=== PATIENT | female | born 1965 | race African-American/Black ===

== ENCOUNTER 2017-11-09 16:58 | Inpatient (IN) | payer SELFPAY ==
[~2017-11-09] VITALS: Ht 157.5 cm; Wt 92.8 kg
[~2017-11-09 16:58] MED LIST: ABILIFY10 MG PO; CONCERTA36 MG PO; CYMBALTA60 MG PO; DESYREL100 MG PO; GEODON80 MG PO; LEVOTHROID,S0.137 MG PO; METHYLPHENIDATE54 MG PO; PRILOSEC20 MG PO; SYNTHROID137 MCG PO; VIT D
[2017-11-09 18:20] LABS: APPEARANCE SL.HAZY ((CLEAR)); BILIRUBIN NEGATIVE; BLOOD NEGATIVE; COLOR YELLOW ((YELLOW)); GLUCOSE (STRIP) NEGATIVE; KETONES NEGATIVE; LEUKOCYTES NEGATIVE; NITRITE NEGATIVE; PROTEIN (STRIP) NEGATIVE; SPECIFIC GRAVITY 1.014 (1.000-1.030); UROBILINOGEN 0.2 MG/DL (0.2-1.0)
[2017-11-09 18:30] LABS: AMPHETAMINE NEGATIVE (500 ng/mL); BACTERIA RARE /HPF; BARBITURATES NEGATIVE (200 ng/mL); BENZODIAZEPINES NEGATIVE (150 ng/mL); BUPRENORPHINE NEGATIVE (10 ng/mL); COCAINE NEGATIVE (150 ng/mL); EPITHELIAL CELLS 2+ /HPF; METHADONE NEGATIVE (200 ng/mL); METHAMPHETAMINE NEGATIVE (500 ng/mL); MUCUS TRACE /LPF; OPIATES (MORPHINE) NEGATIVE (100 ng/mL); OXYCODONE NEGATIVE (100 ng/mL); PHENCYCLIDINE NEGATIVE (25 ng/mL); PROPOXYPHENE NEGATIVE (300 ng/mL); RED BLOOD CELLS 0-5 /HPF (0-5); THC CANNABINOIDS NEGATIVE (50 ng/mL); TRICYCLIC ANTIDEPRESSANTS NEGATIVE (300 ng/mL); WHITE BLOOD CELLS 0-5 /HPF (0-5)
[2017-11-09 18:50] LABS: HEMATOCRIT 35.8 % (36.0-46.0); HEMOGLOBIN 12.2 G/DL (11.9-15.5); MCH 29.9 PG (29.0-34.0); MCHC 34.1 G/DL (30.0-36.0); MCV 87.7 FL (83-99); PLATELET COUNT 352 K/uL (156-360); RBC DIS.WIDTH-CV 11.2 % (11.8-14.6); RBC DIS.WIDTH-SD 35.9 % (39-53); RED BLOOD COUNT 4.08 M/uL (3.80-5.20); WHITE BLOOD COUNT 8.5 K/uL (4.1-10.2)
[2017-11-09 18:59] LABS: ALBUMIN 4.2 g/dL (3.2-4.8); CHLORIDE 108 mEq/L (99-109); POTASSIUM 3.9 mEq/L (3.7-5.4); SODIUM 141 mEq/L (136-147)
[2017-11-09 19:01] LABS: GLUCOSE 101 mg/dL (70-99); TOTAL PROTEIN 7.8 g/dL (6.4-8.3)
[2017-11-09 19:03] LABS: TOTAL BILIRUBIN 0.3 mg/dL (0.0-1.0)
[2017-11-09 19:04] LABS: SERUM ETHYL ALCOHOL < 10 mg/dL
[2017-11-09 19:05] LABS: ALKALINE PHOSPHATASE 93 IU/L (3-129); GFR ESTIMATE (CALCULATED) > 59 mL/min/
[2017-11-09 19:06] LABS: AST (GOT) 15 IU/L (2-34); UREA NITROGEN (BUN) 16 mg/dL (9-23)
[2017-11-09 19:08] LABS: ALT (GPT) 16 IU/L (3-49)
[2017-11-09] MEDS ORDERED: SYNTHROID125 MCG PO (20:23)
[2017-11-09] MEDS ORDERED: TURMERIC 500 M1 EACH PO (20:25)
[2017-11-09] MEDS ORDERED: VITAMIN D31000 UNIT PO (20:26)
[2017-11-09] MEDS ORDERED: ADVIL,NUPRIN,M200 MG PO (20:31)
[2017-11-09] MEDS ORDERED: BAYER ASPIRIN1 EACH PO (20:34)
[2017-11-10 07:57] VITALS: BP 145/100
[2017-11-10 15:51] VITALS: BP 114/69
[2017-11-10] MEDS ORDERED: VENTOLIN HFA18 GM IH (20:56)
[2017-11-11 08:07] VITALS: BP 140/82
[2017-11-11 16:00] VITALS: BP 160/98
[2017-11-12 07:55] VITALS: BP 135/85
[2017-11-12 15:51] VITALS: BP 156/84
[2017-11-13 07:47] VITALS: BP 134/76
[2017-11-13 15:19] VITALS: BP 165/113
[2017-11-13 21:35] VITALS: BP 142/97
[2017-11-14 08:23] VITALS: BP 142/88
[2017-11-14] MEDS ORDERED: QUETIAPINE FUM100 MG PO (10:11)
[2017-11-14] MEDS ORDERED: SYNTHROID125 MCG PO (10:11)
== END 2017-11-14 13:16 | disposition home or self-care (01) | DRG 885 ==
LOC: EME 16:58 → EDOF 19:07 → 1WEST 19:07 → ENRESERV 20:45 → 1WEST 20:46
PROVIDERS: Emergency Medicine
DX: F31.64 Bipolar disorder, current episode mixed, severe, with psychotic features (principal); R45.851 Suicidal ideations; F43.10 Post-traumatic stress disorder, unspecified; G43.909 Migraine, unspecified, not intractable, without status migrainosus; Z56.0 Unemployment, unspecified; Z91.5 Personal history of self-harm; Z90.710 Acquired absence of both cervix and uterus; Z62.810 Personal history of physical and sexual abuse in childhood
CPT/HCPCS: 71045; 80053; 81003; 85027; 90839; 97166 GO; 99281; 99285; G0480